=== PATIENT | female | born 1990 | race Caucasian/White ===

== ENCOUNTER 2017-07-15 00:28 | Emergency (ER) | payer OTHER ==
[~2017-07-15] VITALS: Ht 165.1 cm; Wt 113.4 kg
[~2017-07-15 00:28] MED LIST: ACCUNEB SO1.25 MG/1 INH; ALBUTEROL2.5 MG/0.1 INH; ALLEGRA-D 12 H1 EACH PO; APAP500; CELEXA 10 MG TA10 M1 PO; CITRATE OF MAG296 ML PO; CYCLOBENZAPRINE5 MG PO; DOXYCYCLINE 10100 MG PO; ERRIN0.35 MG; IBUPROFEN 600600 M1; IBUPROFEN 800800 M1 PO; IBUPROFEN 800800 MG PO; IRON325 PO; LANOLIN56 GM; MACROBID 100 M100 M1 PO; NORCO 5-325 TA1 EACH; NORCO 5-325 TA1 EACH PO; ONDANSETRON HCL4 M2 PO; PERCOCET 5-3251 EACH PO; PREDNISOLONE; PREDNISONE 20 M20 MG PO; PRENATAL; PRENATAL PO; REGLAN 5 MG TAB5 MG PO; TESSALON PERLE100 MG PO; TRAMADOL 50 MG50 MG PO; TRINATE TABLET1 TAB; TUCKS MEDICATE1 EAC1; TUMS; ZANTAC 150MG T150 MG PO; ZOFRAN4 MG PO; ZOLOFT50 MG; ZOLOFT50 MG PO; ZPAK PO
[2017-07-15 01:42] LABS: ABSOLUTE NEUTROPHILS 6.7 thou/uL (1.4-8.2); BASOPHILS 0.7 % (0.0-2.0); EOSINOPHILS 1.5 % (0.0-3.0); HEMATOCRIT 40.4 % (37.0-47.0); HEMOGLOBIN 13.4 gm/dL (12.0-15.0); LYMPHOCYTES 31.6 % (24.0-44.0); MCH 28.3 pg (26.0-34.0); MCHC 33.2 g/dL (28.0-37.0); MCV 85.2 fL (80.0-100.0); MONOCYTES 8.5 % (1.0-8.0); PLATELET COUNT 325 thou/uL (150-400); POLYS 57.7 % (36.0-66.0); RBC 4.74 mil/uL (4.20-5.00); RDW 14.5 % (10.5-14.5); WBC 11.7 thou/uL (4.0-11.0)
[2017-07-15 01:50] LABS: CALCIUM 8.9 mg/dL (8.5-10.1); CREATININE 0.6 mg/dL (0.6-1.0); POTASSIUM 3.5 mmol/L (3.5-5.1)
[2017-07-15 01:53] LABS: URINE BILIRUBIN NEGATIVE (Negative); URINE BLOOD TRACE (Negative); URINE CLARITY CLOUDY; URINE COLOR YELLOW; URINE GLUCOSE-RANDOM* NEGATIVE (Negative); URINE KETONES NEGATIVE (Negative); URINE LEUKOCYTES-REFLEX NEGATIVE (Negative); URINE NITRITE-REFLEX NEGATIVE (Negative); URINE PROTEIN (DIPSTICK) NEGATIVE (Negative); URINE UROBILINOGEN 0.2 E.U./dl (0.2-1.0)
[2017-07-15 01:56] LABS: ALBUMIN 3.6 g/dL (3.4-5.0); TOTAL BILIRUBIN 0.2 mg/dL (<0.1-1.0); TOTAL PROTEIN 6.9 g/dL (6.4-8.2)
[2017-07-15] MEDS ORDERED: BENTYL 20 MG TA20 M1 PO (02:34)
[2017-07-15] MEDS ORDERED: ZOFRAN4 MG PO (02:34)
== END 2017-07-15 02:41 | disposition home or self-care (01) ==
LOC: ER 00:28
PROVIDERS: Emergency Medicine
DX: R10.31 Right lower quadrant pain (principal); R10.32 Left lower quadrant pain; R11.0 Nausea; J45.909 Unspecified asthma, uncomplicated; F90.9 Attention-deficit hyperactivity disorder, unspecified type; G89.29 Other chronic pain; M54.9 Dorsalgia, unspecified; Z90.49 Acquired absence of other specified parts of digestive tract; Z90.89 Acquired absence of other organs; Z88.1 Allergy status to other antibiotic agents; Z88.2 Allergy status to sulfonamides